=== PATIENT | female | born 1990 | race Caucasian/White ===

== ENCOUNTER 2020-11-11 14:09 | Outpatient (CLI) | payer OTHER ==
[~2020-11-11] VITALS: Ht 162.6 cm; Wt 65.0 kg
[2020-11-11 14:45] VITALS: BP 143/94
[2020-11-11 15:53] LABS: ALANINE AMINOTRANSFERASE 16 U/L (12-78); ANION GAP 6 mmol/L (5-15); CALCIUM 9.2 mg/dL (8.5-10.1); CHLORIDE 108 mmol/L (98-107)
[2020-11-11 15:56] LABS: ALKALINE PHOSPHATASE 161 U/L (45-117); BILIRUBIN,TOTAL 0.2 mg/dL (0.2-1.0); CREATININE 0.68 mg/dL (0.55-1.02); TOTAL PROTEIN 7.5 g/dL (6.4-8.2)
[2020-11-11 15:57] LABS: BILIRUBIN, DIRECT < 0.1 mg/dL (0.1-0.2)
[2020-11-11 16:00] LABS: BASOPHILS % (AUTO) 0 % (0-1); EOSINOPHILS % (AUTO) 1 % (1-7); LYMPHOCYTES % (AUTO) 16 % (22-44); MEAN CORPUSCULAR HEMOGLOBIN 30.2 pg (27.0-34.8); MEAN CORPUSCULAR HGB CONC 33.9 g/dL (32.4-35.8); MEAN PLATELET VOLUME 10.3 fL (7.4-10.4); MONOCYTES % (AUTO) 5 % (2-9); NEUTROPHILS % (AUTO) 77 % (42-75); PLATELET COUNT 150 x10^3/uL (130-400); RED BLOOD COUNT 4.13 x10^6/uL (3.82-5.3); RED CELL DISTRIBUTION WIDTH 13.1 % (9.6-15.2)
[2020-11-11 16:02] LABS: MD NO
[2020-11-11] MEDS ORDERED: PREN1TAB60 PO (16:20)
[2020-11-11 16:33] LABS: MICROSCOPIC INDICATED
[2020-11-11 16:49] LABS: CREATININE,URINE RANDOM 35.2 mg/dL
== END 2020-11-11 17:39 | disposition home or self-care (01) ==
LOC: LDOP 14:09
PROVIDERS: ATTEND Obstetrics & Gynecology
DX: O62.9 Abnormality of forces of labor, unspecified (principal); Z3A.39 39 weeks gestation of pregnancy
CPT/HCPCS: 36415; 59025; 80053; 81001; 82248; 82570; 84156; 84550; 85025

== ENCOUNTER 2020-11-13 18:27 | Inpatient (IN) | payer OTHER ==
[~2020-11-13] VITALS: Ht 162.6 cm; Wt 65.0 kg
[~2020-11-13 18:27] MED LIST: PREN1TAB60 PO
[2020-11-13] MEDS ORDERED: NEWBORN KIT ONE (20:19)
[2020-11-13] MEDS ORDERED: LIDOCAINE 1%, 20ML ONE (20:19)
[2020-11-13] MEDS ORDERED: MISOPROSTOL 200 MCG TABLET ONE (20:19)
[2020-11-13] MEDS ORDERED: TERBUTALINE 1 MG/ML, 1ML ONE (20:20)
[2020-11-13] MEDS ORDERED: OXYTOCIN 30U/ 0.9% NaCL 500ML 500 ML ONE (20:20)
[2020-11-13] MEDS: LACTATED RINGERS 1,000 ML IV SCH ×2 (20:40→21:38)
[2020-11-13] MEDS ORDERED: OXYTOCIN 30U/ 0.9% NaCL 500ML 500 ML IV ONE (21:30)
[2020-11-13] MEDS ORDERED: TERBUTALINE 1 MG/ML, 1ML IVPush PRN (21:30)
[2020-11-13] MEDS ORDERED: D5%-LACTATED RINGERS 1,000 ML IV SCH (21:30)
[2020-11-13] MEDS ORDERED: OXYTOCIN 30U/ 0.9% NaCL 500ML 500 ML IV PRN (21:30)
[2020-11-13] MEDS ORDERED: FENTANYL PF 100 MCG/2ML IVPush PRN (21:30)
[2020-11-13] MEDS ORDERED: TERBUTALINE 1 MG/ML, 1ML SQ PRN (21:30)
[2020-11-13] MEDS ORDERED: FENTANYL PF 100 MCG/2ML IV PRN (21:30)
[2020-11-13] MEDS ORDERED: ONDANSETRON 2MG/ML, 2ML IVPush PRN (21:30)
[2020-11-13 21:31] LABS: BASOPHILS % (AUTO) 0 % (0-1); EOSINOPHILS % (AUTO) 0 % (1-7); LYMPHOCYTES % (AUTO) 14 % (22-44); MEAN CORPUSCULAR HEMOGLOBIN 30.7 pg (27.0-34.8); MEAN CORPUSCULAR HGB CONC 34.3 g/dL (32.4-35.8); MEAN PLATELET VOLUME 9.9 fL (7.4-10.4); MONOCYTES % (AUTO) 6 % (2-9); NEUTROPHILS % (AUTO) 79 % (42-75); PLATELET COUNT 139 x10^3/uL (130-400); RED BLOOD COUNT 3.92 x10^6/uL (3.82-5.3)
[2020-11-13 21:36] LABS: MD NO
[2020-11-13] MEDS ORDERED: FENTANYL PF 100 MCG/2ML ONE ×2 (21:44→23:18)
[2020-11-13 22:29] LABS: ALBUMIN 2.9 g/dL (3.4-5.0); ANION GAP 10 mmol/L (5-15); CALCIUM 8.7 mg/dL (8.5-10.1); CHLORIDE 103 mmol/L (98-107)
[2020-11-13 22:33] LABS: ALANINE AMINOTRANSFERASE 14 U/L (12-78); ALKALINE PHOSPHATASE 157 U/L (45-117); BILIRUBIN,TOTAL 0.2 mg/dL (0.2-1.0); CREATININE 0.74 mg/dL (0.55-1.02)
[2020-11-13 22:34] LABS: BILIRUBIN, DIRECT < 0.1 mg/dL (0.1-0.2)
[2020-11-13 23:15] LABS: MICROSCOPIC AUTO
[2020-11-13 23:27] LABS: CREATININE,URINE RANDOM 44.7 mg/dL
[2020-11-14] MEDS ORDERED: FENTANYL/BUPIV./NS/PF 250 ML EPIDCONT ONE (00:23)
[2020-11-14] MEDS ORDERED: LIDOCAINE/PF 1.5% EPI 1:200K, 10 ML ONE (00:24)
[2020-11-14] MEDS ORDERED: EPHEDRINE 50 MG/ML, 1ML ONE (01:05)
[2020-11-14] MEDS ORDERED: EPHEDRINE 50 MG/ML, 1ML IVPush PRN (01:30)
[2020-11-14] MEDS ORDERED: NALOXONE 0.4 MG/ML, 1ML IVPush PRN (01:30)
[2020-11-14] MEDS ORDERED: LACTATED RINGERS 1,000 ML IVBOLUS PRN (01:30)
[2020-11-14] MEDS: FENTANYL/BUPIV./NS/PF 250 ML EPIDCONT SCH (01:30)
[2020-11-14] MEDS: LACTATED RINGERS 1,000 ML IV SCH ×3 (02:00→17:30)
[2020-11-14] MEDS ORDERED: METOCLOPRAMIDE 5 MG/ML, 2ML ONE (02:22)
[2020-11-14] MEDS ORDERED: SODIUM CITRATE/CITRIC ACID 15 ML UDC ONE (02:23)
[2020-11-14] MEDS ORDERED: LIDOCAINE/MPF 2%-EPI 1:200K, 20 ML ONE (10:59)
[2020-11-14] MEDS ORDERED: TERBUTALINE 1 MG/ML, 1ML ONE (11:33)
[2020-11-14] MEDS ORDERED: morphine SULFATE/PF 0.5 MG/ML, 10ML ONE (11:41)
[2020-11-14] MEDS ORDERED: ONDANSETRON 2MG/ML, 2ML ONE (11:50)
[2020-11-14] MEDS ORDERED: DEXAMETHASONE 4 MG/ML, 1ML ONE (11:50)
[2020-11-14] MEDS ORDERED: KETOROLAC 30 MG/1 ML ONE (11:50)
[2020-11-14] MEDS ORDERED: OXYTOCIN 10 UNITS/ML, 1ML ONE (11:50)
[2020-11-14] MEDS ORDERED: SODIUM CHLORIDE 0.9% PF 10ML ONE (12:04)
[2020-11-14] MEDS ORDERED: PHENYLEPHRINE 10 MG/ML ONE (12:04)
[2020-11-14] MEDS: OXYTOCIN 30U/ 0.9% NaCL 500ML 500 ML IV SCH ×2 (12:30→22:30)
[2020-11-14] MEDS ORDERED: MORPHINE SULFATE 4 MG/ML, 1ML IVPush PRN (12:30)
[2020-11-14] MEDS ORDERED: ACETAMINOPHEN 325 MG TABLET PO PRN ×3 (12:30)
[2020-11-14] MEDS ORDERED: MISOPROSTOL 200 MCG TABLET PR PRN (12:30)
[2020-11-14] MEDS ORDERED: morphine SULFATE 10 MG/ML, 1ML IM PRN (12:30)
[2020-11-14 14:35] VITALS: BP 154/92
[2020-11-14] MEDS: OXYcodone/APAP 5/325MG TABLET PO PRN (17:18)
[2020-11-14 17:30] VITALS: BP 148/92
[2020-11-14] MEDS: KETOROLAC 30 MG/1 ML IV SCH (18:20)
[2020-11-14 19:15] VITALS: BP 136/80
[2020-11-14 21:46] LABS: BASOPHILS % (AUTO) 0 % (0-1); EOSINOPHILS % (AUTO) 0 % (1-7); LYMPHOCYTES % (AUTO) 7 % (22-44); MEAN CORPUSCULAR HEMOGLOBIN 30.6 pg (27.0-34.8); MEAN CORPUSCULAR HGB CONC 34.4 g/dL (32.4-35.8); MONOCYTES % (AUTO) 6 % (2-9); NEUTROPHILS % (AUTO) 87 % (42-75); PLATELET COUNT 106 x10^3/uL (130-400); RED BLOOD COUNT 3.09 x10^6/uL (3.82-5.3)
[2020-11-14 21:47] LABS: MD NO
[2020-11-15 00:30] VITALS: BP 124/77
[2020-11-15] MEDS: KETOROLAC 30 MG/1 ML IV SCH ×4 (00:30→18:38)
[2020-11-15] MEDS: FENTANYL/BUPIV./NS/PF 250 ML EPIDCONT SCH (01:30)
[2020-11-15] MEDS: LACTATED RINGERS 1,000 ML IV SCH (01:30)
[2020-11-15] MEDS: OXYcodone/APAP 5/325MG TABLET PO PRN ×4 (03:54→20:49)
[2020-11-15] MEDS ORDERED: RHOGAM FROM BLOOD BANK 1 NOTE EA IM/IV ONE (04:00)
[2020-11-15 04:06] VITALS: BP 111/72
[2020-11-15 07:25] VITALS: BP 104/66
[2020-11-15] MEDS: DOCUSATE 100 MG CAPSULE PO PRN ×2 (09:16→20:49)
[2020-11-15] MEDS: PRENATAL VIT/IRON/FA 1 EACH TABLET PO SCH (09:16)
[2020-11-15 12:00] VITALS: BP 114/76
[2020-11-15 20:40] VITALS: BP 126/82
[2020-11-16] MEDS: KETOROLAC 30 MG/1 ML IV SCH ×2 (00:59→06:44)
[2020-11-16] MEDS: OXYcodone/APAP 5/325MG TABLET PO PRN ×3 (00:59→14:03)
[2020-11-16 01:07] VITALS: BP 138/84
[2020-11-16 07:50] VITALS: BP 126/81
[2020-11-16] MEDS: DOCUSATE 100 MG CAPSULE PO PRN (12:33)
[2020-11-16] MEDS: IBUPROFEN 600 MG TABLET PO PRN ×2 (12:33→19:36)
[2020-11-16] MEDS: PRENATAL VIT/IRON/FA 1 EACH TABLET PO SCH (12:33)
[2020-11-16 20:14] VITALS: BP 143/88
[2020-11-17] MEDS: SIMETHICONE 80 MG CHEW TAB PO PRN ×2 (00:16→08:01)
[2020-11-17] MEDS: DOCUSATE 100 MG CAPSULE PO PRN ×2 (00:16→08:01)
[2020-11-17] MEDS: OXYcodone/APAP 5/325MG TABLET PO PRN ×3 (00:17→12:37)
[2020-11-17] MEDS: IBUPROFEN 600 MG TABLET PO PRN ×2 (02:06→08:02)
[2020-11-17 07:45] VITALS: BP 130/81
[2020-11-17] MEDS: PRENATAL VIT/IRON/FA 1 EACH TABLET PO SCH (08:01)
[2020-11-17] MEDS ORDERED: DOCU-131 PO (12:21)
[2020-11-17] MEDS ORDERED: IBUP-1222 PO (12:22)
[2020-11-17] MEDS ORDERED: OXYC-302 PO (12:23)
== END 2020-11-17 12:40 | disposition home or self-care (01) | DRG 785 ==
LOC: LDOP 18:27 → LDIP 20:24 → 2NW 11-14 14:32
PROVIDERS: ADMIT Obstetrics & Gynecology; ATTEND Obstetrics & Gynecology
PROC: 10D00Z1 Extraction of Products of Conception, Low, Open Approach (ICD-10-PCS; principal; 2020-11-14)
PROC: 0UB70ZZ Excision of Bilateral Fallopian Tubes, Open Approach (ICD-10-PCS; 2020-11-14)
PROC: 3E0234Z Introduction of Serum, Toxoid and Vaccine into Muscle, Percutaneous Approach (ICD-10-PCS; 2020-11-15)
DX: O34.83 Maternal care for other abnormalities of pelvic organs, third trimester (principal); O69.81X0 Labor and delivery complicated by cord around neck, without compression, not applicable or unspecified; N83.8 Other noninflammatory disorders of ovary, fallopian tube and broad ligament; O26.893 Other specified pregnancy related conditions, third trimester; O76 Abnormality in fetal heart rate and rhythm complicating labor and delivery; Z37.0 Single live birth; Z3A.39 39 weeks gestation of pregnancy; Z86.16 Personal history of COVID-19; Z67.11 Type A blood, Rh negative; Z90.49 Acquired absence of other specified parts of digestive tract
CPT/HCPCS: 36415; J7121; 80053; 81001; 82248; 82570; 84156; 84550; 85025; 85461; 86592; 86850; 86900; 88304; G0378; J1100; J1885; J2274; J2405; J2790; J3010; J2370; J2590; J7120